=== PATIENT | male | born 1930 | race Caucasian/White ===

== ENCOUNTER 2017-09-11 09:30 | Emergency (ER) | payer MEDICARE, OTHER ==
[~2017-09-11] VITALS: Ht 182.9 cm; Wt 77.0 kg
[~2017-09-11 09:30] MED LIST: ALBU1AER INH; DULE200A INH; HYDR5SOL PO; PREG100 PO
[2017-09-11 09:35] VITALS: BP 121/60; PULSE 105; RESP 16; TEMP 97.6; O2SAT 99
[2017-09-11] MEDS ORDERED: PRED5PAK PO (09:55)
[2017-09-11] MEDS ORDERED: LYRI200C PO (09:55)
[2017-09-11] MEDS ORDERED: ADVA230A INH (09:55)
[2017-09-11] MEDS ORDERED: LYRI100C PO (09:55)
[2017-09-11] MEDS ORDERED: IPRAAER INH (09:55)
[2017-09-11 10:06] LABS: AUTOMATED NEUTROPHIL # 6.3 TH/MM3 (1.8-7.7); BASOPHIL # 0.1 TH/MM3 (0-0.2); BASOPHIL % 0.7 % (0.0-2.0); EOSINOPHIL % 0.1 % (0.0-4.0); HEMATOCRIT 26.7 % (39.0-51.0); LYMPH % 12.6 % (9.0-44.0); MEAN CELL VOLUME 61.1 FL (80.0-100.0); MEAN CORPUSCULAR HEMOGLOBIN 17.9 PG (27.0-34.0); MONO % 6.7 % (0.0-8.0); NEUT % 79.9 % (16.0-70.0); PLATELET COUNT 246 TH/MM3 (150-450); RED BLOOD COUNT 4.38 MIL/MM3 (4.50-5.90); RED CELL DISTRIBUTION WIDTH 21.3 % (11.6-17.2); WHITE BLOOD COUNT 7.9 TH/MM3 (4.0-11.0)
[2017-09-11 10:10] LABS: HEMO FLAGS AUTO DIFF; MEAN CORPUSCULAR HGB CONC 29.3 % (32.0-36.0)
[2017-09-11 10:14] LABS: CHLORIDE 109 MEQ/L (98-107); POTASSIUM 3.9 MEQ/L (3.5-5.1); SODIUM (NA) 143 MEQ/L (136-145)
[2017-09-11 10:18] LABS: ANION GAP 13 MEQ/L (5-15); APTT (PATIENT) 22.2 SEC (24.3-30.1); BICARBONATE 21.3 MEQ/L (21.0-32.0); BLOOD UREA NITROGEN 24 MG/DL (7-18); PROTHROMBIN TIME - PATIENT 11.1 SEC (9.8-11.6)
[2017-09-11 10:21] LABS: ALT (GPT) 18 U/L (12-78); AST (GOT) 12 U/L (15-37); GLOMERULAR FILTRATION RATE 52 ML/MIN (>89)
[2017-09-11 10:22] LABS: TOTAL BILIRUBIN ADULT 1.9 MG/DL (0.2-1.0)
[2017-09-11 10:25] LABS: ALKALINE PHOSPHATASE 64 U/L (45-117)
[2017-09-11 11:06] LABS: OVALOCYTES 2+ (NORMAL); SCAN/DIFF AUTO DIFF CONFIRMED; TARGET CELLS 1+ (NORMAL)
[2017-09-11] MEDS ORDERED: FERR325T18 PO (12:03)
--- NOTE | 2017-09-11 12:03 | PD ---
HPI Chief Complaint: Abnormal Results Time Seen by Provider: 09:43 Travel History International Travel<30 days: No Contact w/Intl Traveler<30days: No Traveled to known affect area: No History of Present Illness HPI This is an 87-year-old male who presents to the emergency department with fatigue that's been going on for 1 month, constant, moderate severity, with no associated blood in his stool, black stools, chest pain or shortness of breath. He comes in with his daughter. He had blood work done over the weekend which demonstrated a hemoglobin of 7.4. He was sent in for admission for blood transfusion. He's never had anemia in the past. He says he had a colonoscopy but that was years ago. He denies any NSAID use. His daughter says his diet is really poor and he doesn't eat very much. PFSH Past Medical History Arthritis: Yes (knees and ankles) Asthma: No Autoimmune Disease: No Anxiety: No Depression: No Heart Rhythm Problems: No Cancer: Yes (throat) Cardiovascular Problems: No High Cholesterol: No Chemotherapy: No Chest Pain: No Congestive Heart Failure: No COPD: No Diabetes: No Endocrine: No Gastrointestinal Disorders: Yes GERD: No Genitourinary: No Hiatal Hernia: No Immune Disorder: No Kidney Stones: No Musculoskeletal: No Neurologic: Yes Psychiatric: No Reproductive: No Respiratory: No Migraines: No Radiation Therapy: No Renal Failure: No Seizures: No Sickle Cell Disease: No Sleep Apnea: No Thyroid Disease: No Ulcer: Yes (years ago) Influenza Vaccination: Yes Past Surgical History Abdominal Surgery: Yes (part of intestine removed from cancer) AICD: No Arteriovenous Shunt: No Cardiac Surgery: No Ear Surgery: No Endocrine Surgery: No Eye Surgery: No Genitourinary Surgery: No Gynecologic Surgery: No Insulin Pump: No Joint Replacement: No Oral Surgery: No Pacemaker: No Thoracic Surgery: No Other Surgery: Yes (THROAT) Social History Alcohol Use: Yes ("A CAN OF BEER A NIGHT") Tobacco Use: No Substance Use: No Allergies-Medications (Allergen,Severity, Reaction): Coded Allergies: No Known Allergies (Unverified Adverse Reaction, Unknown, 09/11/17) Reported Meds & Prescriptions Reported Meds & Active Scripts Active Reported Prednisone (21) 5 mg tab Dose Pack (Prednisone) 5 Mg Dspk 5 Mg PO DIRECTED Lyrica (Pregabalin) 200 Mg Cap 200 Mg PO HS Lyrica (Pregabalin) 100 Mg Cap 100 Mg PO AM Combivent Respimat Inh (Ipratropium-Albuterol Inh) 20-100 Care Home/Act Aero 1 Puff INH QID Advair Hfa 12 GM Inh (Fluticasone-Salmeterol 12 GM Inh) 230-21 Mcg/Act Aer 2 Puff INH BID Review of Systems Except as stated in HPI: all other systems reviewed are Neg Physical Exam Narrative GENERAL:Well appearing, no acute distress SKIN: Pale HEAD: Atraumatic. Normocephalic. EYES: Pupils equal and round. No injection or drainage. ENT: Moist mucous membranes NECK: Trachea midline. CARDIOVASCULAR: Regular rate and rhythm. No murmur appreciated. RESPIRATORY: Clear to auscultation. Breath sounds equal bilaterally. GASTROINTESTINAL: Abdomen soft, non-tender, nondistended. MUSCULOSKELETAL: No obvious deformities. NEUROLOGICAL: Awake and alert. No obvious cranial nerve deficits. Moving all extremities. PSYCHIATRIC: Appropriate mood and affect; insight and judgment normal. Data Data Last Documented VS Vital Signs Date Time Temp Pulse Resp B/P (MAP) Pulse Ox O2 Delivery O2 Flow Rate FiO2 09/11/17 09:35 97.6 105 16 121/60 (80) 99 Orders Orders Complete Blood Count With Diff (09/11/17 09:54) Comprehensive Metabolic Panel (09/11/17 09:54) Type And Screen (09/11/17 09:54) Prothrombin Time / Inr (Pt) (09/11/17 09:54) Act Partial Throm Time (Ptt) (09/11/17 09:54) Labs Laboratory Tests Test 09/11/17 09:58 White Blood Count 7.9 TH/MM3 Red Blood Count 4.38 MIL/MM3 Hemoglobin 7.8 GM/DL Hematocrit 26.7 % Mean Corpuscular Volume 61.1 FL Mean Corpuscular Hemoglobin 17.9 PG Mean Corpuscular Hemoglobin Concent 29.3 % Red Cell Distribution Width 21.3 % Platelet Count 246 TH/MM3 Mean Platelet Volume 7.9 FL Neutrophils (%) (Auto) 79.9 % Lymphocytes (%) (Auto) 12.6 % Monocytes (%) (Auto) 6.7 % Eosinophils (%) (Auto) 0.1 % Basophils (%) (Auto) 0.7 % Neutrophils # (Auto) 6.3 TH/MM3 Lymphocytes # (Auto) 1.0 TH/MM3 Monocytes # (Auto) 0.5 TH/MM3 Eosinophils # (Auto) 0.0 TH/MM3 Basophils # (Auto) 0.1 TH/MM3 CBC Comment AUTO DIFF Differential Comment AUTO DIFF CONFIRMED Target Cells 1+ Ovalocytes 2+ Prothrombin Time 11.1 SEC Prothromb Time International Ratio 1.0 RATIO Activated Partial Thromboplast Time 22.2 SEC Blood Urea Nitrogen 24 MG/DL Creatinine 1.30 MG/DL Random Glucose 91 MG/DL Total Protein 7.1 GM/DL Albumin 3.7 GM/DL Calcium Level 8.7 MG/DL Alkaline Phosphatase 64 U/L Aspartate Amino Transf (AST/SGOT) 12 U/L Alanine Aminotransferase (ALT/SGPT) 18 U/L Total Bilirubin 1.9 MG/DL Sodium Level 143 MEQ/L Potassium Level 3.9 MEQ/L Chloride Level 109 MEQ/L Carbon Dioxide Level 21.3 MEQ/L Anion Gap 13 MEQ/L Estimat Glomerular Filtration Rate 52 ML/MIN [facility] Medical Decision Making Medical Screen Exam Complete: Yes Emergency Medical Condition: Yes Interpretation(s) Afebrile, mild tachycardia, normotensive Hemoglobin is 7.8 MCV is 61 Total bilirubin is 1.9 Differential Diagnosis Iron deficiency anemia, fully deficiency, B-12 deficiency, GI bleed Narrative Course This is an 87-year-old male who presents to the emergency department with low hemoglobin of 7.4. Here in the emergency department we retracted no 7.8 with an MCV of 61. He's been chronically fatigued for one month. Hemoccult was performed and was negative. He has labs within our system from 2013 which demonstrated a hemoglobin at that time of 10 and at that time it looks like he had iron deficiency. I had a long conversation with the patient regarding inpatient versus outpatient management. I don't think this necessarily warrants inpatient blood transfusion I think is appropriate for outpatient workup. He is not lightheaded, dizzy and has no chest pain. I don't think he' s very symptomatic at this time. I did speak to his primary care physician Dr. Mendez. Pt. will be discharged with iron supplementation [facility] Point of Care Internal Pos. & Neg. Controls: Passed Fecal Specimen Occult Blood: Negative Diagnosis Primary Impression: Anemia Qualified Codes: D64.9 - Anemia, unspecified Patient Instructions: General Instructions Additional Instructions: If you develop severe chest pain, shortness of breath, sweating, lightheadedness , dizziness or difficulty breathing return to the emergency department immediately. Followup with your primary care physician as soon as possible. Med/Other Pt SpecificInfo: Prescription(s) given Scripts Ferrous Sulfate (Ferrous Sulfate) 325 Mg (65 Mg Iron) Tablet 325 MG PO BIDPC for Nutritional Supplement, #60 TAB 0 Refills Prov: Cony Coker MD 09/11/17 Disposition: 01 DISCHARGE HOME Condition: Stable Cony Coker MD Sep 11, 2017 12:03
[2017-09-11 12:23] VITALS: BP 114/78
[2017-09-11 14:07] LABS: TRANSFERRIN IRON PROFILE 396 MG/DL (200-360)
[2017-09-11 14:10] LABS: FERRITIN 5 NG/ML (26-388)
[2017-09-11] MEDS ORDERED: CYAN1TAB24 (16:23)
== END 2017-09-11 12:24 | disposition home or self-care (01) ==
LOC: PHED 09:30
DX: D64.9 Anemia, unspecified (principal)
CPT/HCPCS: 80053; 82728; 83540; 83550; 85025; 85610; 85730; 86850; 86900; 86901; 99283